=== PATIENT | female | born 1950 ===

== ENCOUNTER 2018-07-26 10:02 | Outpatient (CLI) | payer OTHER | END 2018-07-26 10:10 | disposition home or self-care (01) | LOC: MAMO-SONO 10:02 | DX: Z12.31 Encounter for screening mammogram for malignant neoplasm of breast (principal); Z87.898 Personal history of other specified conditions; N60.11 Diffuse cystic mastopathy of right breast; N60.12 Diffuse cystic mastopathy of left breast ==

== ENCOUNTER 2018-07-26 10:35 | Outpatient (CLI) | payer OTHER | END 2018-07-26 10:44 | disposition home or self-care (01) | LOC: NUCLEAR 10:35 | DX: M81.0 Age-related osteoporosis without current pathological fracture (principal) ==

== ENCOUNTER 2018-08-08 10:46 | Inpatient (IN) | payer OTHER ==
[~2018-08-08] VITALS: Ht 154.9 cm; Wt 77.1 kg
[2018-08-22] MEDS ORDERED: DOCUSATE SODIU100 MG PO (11:21)
[2018-08-22] MEDS ORDERED: GABAPENTIN800 MG PO (11:21)
[2018-08-22] MEDS ORDERED: AMOX-CLAV 875-1 EACH PO (11:22)
[2018-08-22] MEDS ORDERED: CLONAZEPAM1 MG PO (11:23)
[2018-08-22] MEDS ORDERED: PERCOCET 5-3251 EACH PO (11:23)
[2018-08-22] MEDS ORDERED: ACETAMINOPHEN-1 EAC2 PO (16:35)
[2018-08-22] MEDS ORDERED: LYRICA150 MG PO (16:35)
== END 2018-08-22 16:42 | DRG 455 ==
LOC: PED 08-21 05:30 → O/R 08-21 05:30 → SURH 08-21 07:00 → PED 08-21 10:29 → SURH 08-21 11:30 → PED 08-22 16:42 → SURH 09-21 11:30
PROVIDERS: Orthopaedic Surgery Orthopaedic Surgery of the Spine
PROC: 0SG1071 Fusion of 2 or more Lumbar Vertebral Joints with Autologous Tissue Substitute, Posterior Approach, Posterior Column, Open Approach (ICD-10-PCS; 2018-08-21)
PROC: 0ST20ZZ Resection of Lumbar Vertebral Disc, Open Approach (ICD-10-PCS; 2018-08-21)
PROC: 0SG10AJ Fusion of 2 or more Lumbar Vertebral Joints with Interbody Fusion Device, Posterior Approach, Anterior Column, Open Approach (ICD-10-PCS; 2018-08-21)
PROC: 07DS3ZZ Extraction of Vertebral Bone Marrow, Percutaneous Approach (ICD-10-PCS; 2018-08-21)
PROC: 0SG10A0 Fusion of 2 or more Lumbar Vertebral Joints with Interbody Fusion Device, Anterior Approach, Anterior Column, Open Approach (ICD-10-PCS; principal; 2018-08-21 07:00)
DX: M47.26 Other spondylosis with radiculopathy, lumbar region (principal); M41.56 Other secondary scoliosis, lumbar region; M51.16 Intervertebral disc disorders with radiculopathy, lumbar region; M48.061 Spinal stenosis, lumbar region without neurogenic claudication; I10 Essential (primary) hypertension

== ENCOUNTER 2021-08-09 12:44 | Outpatient (CLI) | payer OTHER ==
[~2021-08-09 12:44] MED LIST: ACETAMINOPHEN-1 EAC2 PO; AMOX-CLAV 875-1 EACH PO; CLONAZEPAM1 MG PO; DOCUSATE SODIU100 MG PO; GABAPENTIN800 MG PO; LYRICA150 MG PO; PERCOCET 5-3251 EACH PO
== END 2021-08-09 12:45 | disposition home or self-care (01) ==
LOC: NUCLEAR 12:44
PROVIDERS: ATTEND Orthopaedic Surgery Orthopaedic Surgery of the Spine
DX: M81.0 Age-related osteoporosis without current pathological fracture (principal)

== ENCOUNTER 2021-08-09 13:21 | Outpatient (CLI) | payer OTHER | END 2021-08-09 13:40 | disposition home or self-care (01) | LOC: MAMO-SONO 13:21 | PROVIDERS: ATTEND Obstetrics & Gynecology Maternal & Fetal Medicine | DX: N60.11 Diffuse cystic mastopathy of right breast (principal); N60.12 Diffuse cystic mastopathy of left breast; Z12.31 Encounter for screening mammogram for malignant neoplasm of breast ==

== ENCOUNTER 2023-10-04 10:07 | Outpatient (CLI) | payer OTHER | END 2023-10-04 10:11 | disposition home or self-care (01) | LOC: MAMO-SONO 10:07 | PROVIDERS: ATTEND Obstetrics & Gynecology Maternal & Fetal Medicine | DX: Z12.31 Encounter for screening mammogram for malignant neoplasm of breast (principal); N63.0 Unspecified lump in unspecified breast ==

== ENCOUNTER → 2024-10-07 09:09 | Outpatient (CLI) | payer OTHER | END | disposition home or self-care (01) | LOC: NUCLEAR 09:09 | PROVIDERS: ATTEND Obstetrics & Gynecology Maternal & Fetal Medicine | DX: M81.0 Age-related osteoporosis without current pathological fracture (principal) ==

== ENCOUNTER 2024-10-07 09:48 | Outpatient (CLI) | payer OTHER | END 2024-10-07 09:51 | disposition home or self-care (01) | LOC: MAMO-SONO 09:48 | PROVIDERS: ATTEND Obstetrics & Gynecology Maternal & Fetal Medicine | DX: R10.2 Pelvic and perineal pain (principal); N63.0 Unspecified lump in unspecified breast; Z12.31 Encounter for screening mammogram for malignant neoplasm of breast ==